=== PATIENT | male | born 1980 | race Caucasian/White ===

== ENCOUNTER 2023-10-17 22:04 | Emergency (ER) | payer OTHER, SELFPAY ==
[2023-10-17 22:09] VITALS: BP 146/94
[2023-10-17 22:36] LABS: % Basophils 0.6 % (0-2); % Eosinophils 2.9 % (0-6); % Immature Granulocytes 0.3 % (0-0.5); % Lymphocytes 34.8 % (20.5-51.1); % Monocytes 6.8 % (1.7-9.3); % Neutrophils 54.6 % (42.2-75.2); Absolute Eosinophils 0.2 10^3/uL (0-0.7); Absolute Lymphocytes 2.3 10^3/uL (1.2-3.4); Absolute Monocytes 0.4 10^3/uL (0.1-0.6); Absolute Neutrophils 3.5 10^3/uL (1.4-6.5); Hematocrit 40.1 % (39.0-52.0); Hemoglobin 14.5 g/dL (13.0-18.0); Mean Corp Hgb Conc. 36.2 g/dL (33.0-37.0); Mean Corpuscular Hgb 29.5 pg (27.0-31.0); Mean Corpuscular Volume 81.5 fL (80.0-94.0); Mean Platelet Volume 10.1 fL (7.4-10.4); Nucleated Red Blood Cells % 0 % (-); Platelet Count 169 10^3/uL (130-400); Red Blood Cell Count 4.92 10^6/uL (4.70-6.10); Red Cell Dist. Width 12.2 % (11.5-14.5); White Blood Cell Count 6.5 10^3/uL (4.8-10.8)
--- NOTE | 2023-10-17 22:39 | ED.GENMED ---
History of Present Illness
General
Chief Complaint: Chest Pain
Time Seen by Provider: 10/17/23 22:13
Travel History
Have you had any contact with someone who has COVID-19?: No
Do you have any symptoms of coronavirus? Fever > 100 degrees, chills, cough, shortness of breath, sore throat, loss of taste or smell, muscle aches, or headache?: No
History of Present Illness
History of Present Illness:
HPI: The patient was in [place] over this past weekend and just flew back. 2 days ago, he developed discomfort in the chest that started shortly after he ingested food. He has been having trouble taking p.o. without significant pain. He has no
shortness of breath. He does admit to alcohol use over the weekend. Pain happened again yesterday and today he was only able to eat a slice of toast and has a sensation of severe pain anytime he eats or drinks anything.
EXAM:
GENERAL: Well appearing in minimal distress
HEENT: Moist oral mucosa
CARDIOVASCULAR: No murmurs, normal heart rate, regular rhythm, No chest wall tenderness
PULMONARY: No respiratory distress, breath sounds are clear and equal
ABDOMEN: Soft with no peritoneal signs, no tenderness
NEUROLOGIC: Excellent strength all extremities, no coordination deficits
PSYCHIATRIC: Appropriate mental status, normal insight and judgement
EXTREMITIES: Nontender, no edema, moves all extremities equally
SKIN: No rash, no lesions
TIME OF INITIAL ENCOUNTER: 10:30 PM
NUMBER AND COMPLEXITY OF PROBLEMS ADDRESSED AT THE ENCOUNTER
� Chronic conditions affecting care: GERD, has not had endoscopy, has had pneumonia with right-sided pleurodesis
� Acute Exacerbation and/or Progression of Chronic Illness: This is an acute problem
� Differential Diagnosis includes: Food bolus, GERD, esophageal stricture
AMOUNT AND/OR COMPLEXITY OF DATA TO BE REVIEWED AND ANALYZED
� I performed an independent evaluation of and my interpretation is:
EKG: Sinus 67, normal axis, no acute ST abnormality
CT:
X-rays: Chest x-ray personally viewed�I see no acute abnormality
Laboratory Studies: White count is 6.5, hemoglobin 14.5, chemistries as well as troponin unremarkable
Other:
� Review of other/old records: The patient had a CT-guided therapeutic injection at the right sternoclavicular joint by IR last year
� Clinical information was obtained by an independent historian: None needed
� Prescriptions/Medications Considered but not given:
� Further testing considered but not performed:
RISK OF COMPLICATIONS AND/OR MORBIDITY OR MORTALITY OF PATIENT MANAGEMENT
� Social determinants of health affecting care: Lives at home
� Discussion with other providers: Discussed case with Dr. Rai at [address] [place] [address] that he can be scoped urgently as outpatient.
� Escalation of care including admission/observation vs risk of discharge considered: The patient was able to tolerate water�he was able to drink a few ounces but reported rather significant pain and does not think that he would
be able to eat anything solid at this time. Strongly suspect GI and noncardiac etiology�EKG/troponin unremarkable. The patient was able to get a few crackers down but did report rather significant pain. Hoping to arrange expedited outpatient
endoscopy�I notified Dr. Rai as well as GI front office
Phy Exam
Physical Exam
Physical Exam:
See HPI
Scores
Heart Score for Chest Pain Patients
STEMI patient?: Not applicable
Course
Orders/Labs/Results
Orders:
Orders
10/17/23 22:05
Electrocardiogram (*1) Urgent
Reason for Study: Chest Pain
EKG- Treatment ONCE
10/17/23 22:29
CMP [Comprehensive Metabolic Panel] Urgent
Complete Blood Count/With Diff Urgent
Lipase Urgent
Troponin I Urgent
10/17/23 22:38
0.9% Sodium Chloride 1000 ml [Nss] 1,000 ml IV BOLUS
Famotidine [Pepcid] 20 mg IV NOW STA
Glucagon [GlucaGen] 1 mg IV NOW STA
Ondansetron Injectable [Zofran] 4 mg IV NOW STA
Pantoprazole [Protonix IV] 80 mg IV NOW STA
10/18/23 00:09
Sucralfate Suspension [Carafate Suspension] 1 gm PO NOW STA
CR Chest - 2 Views Urgent
Comment:
Reason For Exam: cp
Abnormal Lab Results
10/17/23
22:29
Glucose 106 H mg/dl
(70-99)
10/17/23 22:29
10/17/23 22:29
Vital Signs
Initial and Last Documented VS:
Initial Vital Signs
Temp Pulse Resp BP Pulse Ox
98.9 F 68 22 146/94 98
10/17/23 22:09 10/17/23 22:09 10/17/23 22:09 10/17/23 22:09 10/17/23 22:09
Last Documented Vital Signs
Temp Pulse Resp BP Pulse Ox
98.9 F 66 14 146/94 96
10/17/23 22:09 10/17/23 22:45 10/17/23 22:45 10/17/23 22:09 10/17/23 22:45
*Critical Care Note
Total Time (30-74mins, 75-104mins- exclusive of procedures): Not Applicable
ED Attending Note
-
Portions of this chart may have been created with voice recognition software.� Occasional wrong word or��sound alike� substitutions may have occurred due to the inherent limitations of voice recognition software.
Discharge Plan
Departure
Patient Disposition: Home (Routine Discharge)
Date of Disposition: 10/18/23
Time of Disposition: 00:36
Patient with high blood pressure during this ER visit?: Yes
Discharge Problem:
Chest pain due to GERD
Instructions: Acid Reflux and GERD in Adults (DC)
Prescriptions:
New
omeprazole 40 mg capsule,delayed release(DR/EC)
40 mg PO BID Qty: 14 0RF
sucralfate [Carafate] 100 mg/mL suspension
10 ml PO ACHS Qty: 420 0RF
Referrals:
NONE,* [Family Provider] -
Carolann Rai, DO [Active] - Tomorrow
Activity Restrictions/Additional Instructions:
I communicated with Dr. Rai. I also notified the GI front office and someone from their office should be contacting you. Return here if worse. I did send a prescription for a PPI as well as Carafate to your pharmacy.
Interventions
Interventions:
*Risk Screen - Suicide Last Done: 10/17/23 22:09
*Neglect/Abuse Screening Last Done: 10/17/23 22:09
ED- Cardiac Assessment Last Done: 10/17/23 22:32
Discharge Date and Time
Print Language: BELARUSIAN
[2023-10-17] MEDS: NSS 1000 IV (22:44)
[2023-10-17] MEDS: PEPCID 20 MG IV (22:45)
[2023-10-17] MEDS: PROTONIX IV 80 MG IV (22:46)
[2023-10-17] MEDS: ZOFRAN 4 MG IV (22:49)
[2023-10-17] MEDS: GlucaGen 1 MG IV (22:50)
[2023-10-17 22:58] LABS: ALT (SGPT) 20 U/L (0-50); AST (SGOT) 28 U/L (17-59); Albumin 4.1 g/dl (3.5-5.0); Alkaline Phosphatase 63 U/L (38-126); Blood Urea Nitrogen 14 mg/dl (9-20); Calcium 9.3 mg/dl (8.4-10.2); Carbon Dioxide 25 mmol/L (22-30); Chloride 104 mmol/L (98-107); Glucose 106 mg/dl (70-99); Lipase 48 U/L (23-300); Potassium 3.5 mmol/L (3.5-5.1); Sodium 137 mmol/L (135-145); Total Bilirubin 0.9 mg/dl (0.2-1.3); Total Protein 6.7 g/dl (6.3-8.2); eGFR > 60.00
[2023-10-17 23:00] VITALS: BP 135/88
[2023-10-17 23:00] LABS: Troponin I < 0.012 ng/ml
[2023-10-18] VITALS: BP 145/85
[2023-10-18] MEDS: CARAFATE SUSPENSION 1 GM PO (00:24)
== END 2023-10-18 01:09 | disposition home or self-care (01) ==
LOC: EMR 22:04
PROVIDERS: EMERGENCY PHYSICIAN Emergency Medicine
DX: R07.89 Other chest pain (principal); K21.9 Gastro-esophageal reflux disease without esophagitis; R03.0 Elevated blood-pressure reading, without diagnosis of hypertension; Z88.0 Allergy status to penicillin
CPT/HCPCS: 99284; 96374; 96375 ×3; 96361; 71046; 80053; 83690; 84484; 85025; 93005; J1610

== ENCOUNTER → 2023-10-19 13:57 | Outpatient (REF) | payer OTHER, SELFPAY | LOC: RAD 13:57 | PROVIDERS: ATTENDING PHYSICIAN Internal Medicine Gastroenterology; FAMILY PHYSICIAN Physician Assistant Medical | DX: R10.13 Epigastric pain (principal) | CPT/HCPCS: 74019 ==

== ENCOUNTER → 2023-10-21 06:25 | Day surgery (SDC) | payer OTHER, SELFPAY | LOC: GI 06:25 | PROVIDERS: ATTENDING PHYSICIAN Internal Medicine Gastroenterology | DX: R13.10 Dysphagia, unspecified (principal); R12 Heartburn; K44.9 Diaphragmatic hernia without obstruction or gangrene; K31.89 Other diseases of stomach and duodenum; K20.90 Esophagitis, unspecified without bleeding | CPT/HCPCS: 43239; 88305; 88341; 88342 ==

== ENCOUNTER 2023-12-11 20:34 | Emergency (ER) | payer OTHER, SELFPAY ==
[2023-12-11 20:38] VITALS: BP 130/90
--- NOTE | 2023-12-11 21:38 | ED.GENMED ---
History of Present Illness
General
Chief Complaint: Musculo-Skeletal Complaint
Source: patient
Exam Limitations: none
Time Seen by Provider: 12/11/23 20:57
Nursing documentation reviewed up to this point in time: agreed with
History of Present Illness
History of Present Illness:
43-year-old male presenting to the emergency department today with concerns of an injury to his right ankle. Initially able to walk but over the next few hours he noticed increasing discomfort using crutches. Claims that he likely inverted and
hyperextended. Denies any breaks in the skin. Denies additional injury.
Review of Systems
Review of Systems
Allergies reviewed?: Yes
All Other Systems: ROS reviewed and negative except as documented in HPI and ROS
Phy Exam
Physical Exam
Physical Exam:
GENERAL: Alert , in no apparent distress
EYE: pupils equal and reactive
NECK: Supple, no significant adenopathy.
ENT: o/p clr, mmm.
CARDIAC: Regular rate and rhythm .
LUNGS: Clear breath sounds bilaterally, no acute respiratory distress, no wheezes/rales/rhonchi
ABDOMEN: Soft, without focal tenderness, no r/g, no cvat
NEUROLOGICAL: Alert and oriented, no focal neuro deficits
SKIN: Warm and dry, skin intact.
MUSCULOSKELETAL: Swelling surrounding the right ankle no redness or warmth increased discomfort with any movement of the lateral or medial malleolus. No tenderness to the midfoot or forefoot normal distal cap refill and pulses. No tenderness to
the gonzáles
PSYCH: Normal and appropriate interaction.
Course
Orders/Labs/Results
Orders:
Orders
12/11/23 20:40
Ankle, Right 3 view CR [CR Ankle - Right Min 3 Views *] Urgent
Comment:
Reason For Exam: ROLLED PLAYING BASEBALL
12/11/23 21:25
boot [Ortho Boot Right- Treatment] ONCE
Short or tall?: Tall
Vital Signs
Initial and Last Documented VS:
Initial Vital Signs
Temp Pulse Resp BP Pulse Ox
98.1 F 82 20 130/90 98
12/11/23 20:38 12/11/23 20:38 12/11/23 20:38 12/11/23 20:38 12/11/23 20:38
Last Documented Vital Signs
Temp Pulse Resp BP Pulse Ox
98.1 F 82 20 130/90 98
12/11/23 20:38 12/11/23 20:38 12/11/23 20:38 12/11/23 20:38 12/11/23 20:38
MDM/Problems Addressed
MDM/Problems Addressed:
43-year-old male presenting to the emergency department after twisting his ankle playing baseball prior to arrival. Discomfort throughout the ankle mainly to the lateral and medial malleoli. No tenderness throughout remainder of the. Patient with
likely sprain considering x-ray without signs of fracture. Patient was given a boot and advised to progress weightbearing as able and given information for follow-up as needed.
*Critical Care Note
Total Time (30-74mins, 75-104mins- exclusive of procedures): Not Applicable
ED Attending Note
-
Portions of this chart may have been created with voice recognition software.� Occasional wrong word or��sound alike� substitutions may have occurred due to the inherent limitations of voice recognition software.
Discharge Plan
Departure
Patient Disposition: Home (Routine Discharge)
Date of Disposition: 12/11/23
Time of Disposition: 21:40
Patient with high blood pressure during this ER visit?: No
Condition: Good
Covid-19: Not Applicable
Discharge Problem:
Ankle sprain
Instructions: Ankle Sprain ED
Prescriptions:
No Action
omeprazole 40 mg capsule,delayed release(DR/EC)
40 mg PO BID Qty: 14 0RF
sucralfate [Carafate] 100 mg/mL suspension
10 ml PO ACHS Qty: 420 0RF
Referrals:
Waldemar Perez DPM [Active] - Follow up in 5-7 days
Justin Wu MD [Family Provider] -
Activity Restrictions/Additional Instructions:
You came to the emergency department today with concerns of an ankle injury. You were found to have a likely sprain. Please rest ice compress and elevate over the next few days and follow-up closely with the foot and ankle doctor as needed.
Return to the emergency department for any worsening, new or concerning symptoms.
Interventions
Interventions:
*Risk Screen - Suicide Last Done: 12/11/23 20:38
*Neglect/Abuse Screening Last Done: 12/11/23 20:38
Discharge Date and Time
Print Language: BELGIAN
== END 2023-12-11 22:15 | disposition home or self-care (01) ==
LOC: EMR 20:34
PROVIDERS: EMERGENCY PHYSICIAN Emergency Medicine; FAMILY PHYSICIAN Family Medicine
DX: S93.409A Sprain of unspecified ligament of unspecified ankle, initial encounter (principal); Y93.64 Activity, baseball
CPT/HCPCS: 99283; 73610

== ENCOUNTER 2024-07-12 06:18 | Day surgery (SDC) | payer OTHER, SELFPAY | END 2024-07-12 09:18 | disposition home or self-care (01) | LOC: GI 06:18 | PROVIDERS: ATTENDING PHYSICIAN Internal Medicine Gastroenterology | DX: K22.70 Barrett's esophagus without dysplasia (principal); K22.89 Other specified disease of esophagus; K31.89 Other diseases of stomach and duodenum; R12 Heartburn; Z87.19 Personal history of other diseases of the digestive system | CPT/HCPCS: 43239; 88305; 88342 ==